=== PATIENT | male | born 1960 | race African-American/Black ===

== ENCOUNTER 2017-07-26 20:58 | Emergency (ER) | payer OTHER ==
[~2017-07-26] VITALS: Ht 185.4 cm; Wt 71.2 kg
--- NOTE | ~2017-07-26 | EKG ---
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
[~2017-07-26 20:58] MED LIST: NOHOMEMEDICATIONS; PHENERGAN 25 MG25 M1 PO; ZOFRAN ODT4 MG PO; ZPAK PO
[2017-07-26] MEDS ORDERED: NORFLEX100 MG PO (21:40)
[2017-07-26] MEDS ORDERED: NAPROSYN500 MG PO (21:40)
[2017-07-26 21:44] LABS: BASOPHILS 0.6 % (0.0-2.0); EOSINOPHILS 1.1 % (0.0-3.0); HEMATOCRIT 41.9 % (42.0-52.0); HEMOGLOBIN 14.2 gm/dL (14.0-18.0); MCH 31.2 pg (26.0-34.0); MCHC 33.9 g/dL (28.0-37.0); MONOCYTES 8.5 % (1.0-8.0); PLATELET COUNT 244 thou/uL (150-400); POLYS 67.8 % (36.0-66.0); RBC 4.55 mil/uL (4.50-6.00); WBC 5.8 thou/uL (4.0-11.0)
[2017-07-26 21:53] LABS: ANION GAP 11 mmol/L (7-16); BUN 10 mg/dL (7-18); CALCIUM 9.6 mg/dL (8.5-10.1); CHLORIDE 106 mmol/L (98-107); CO2 26 mmol/L (21-32); GLUCOSE 103 mg/dL (74-106); POTASSIUM 4.1 mmol/L (3.5-5.1); SODIUM 143 mmol/L (136-145)
[2017-07-26 21:56] LABS: MANUAL DIFF NO
[2017-07-26 22:01] LABS: ALBUMIN 3.8 g/dL (3.4-5.0); ALKALINE PHOSPHATASE 71 U/L (46-116); MAGNESIUM 2.3 mg/dL (1.8-2.4); SGOT 37 U/L (15-37); SGPT 37 U/L (30-65); TOTAL BILIRUBIN 0.5 mg/dL (<0.1-1.0); TOTAL PROTEIN 7.5 g/dL (6.4-8.2); TROPONIN-I < 0.04 ng/mL (<0.06)
[2017-07-26 22:42] VITALS: BP 132/84
== END 2017-07-26 22:42 | disposition home or self-care (01) ==
LOC: ER 20:58
PROVIDERS: Emergency Medicine
DX: R07.89 Other chest pain (principal); G89.29 Other chronic pain; M25.561 Pain in right knee; M43.6 Torticollis